=== PATIENT | female | born 1990 | race Caucasian/White ===

== ENCOUNTER 2024-10-03 12:52 | Inpatient (IN) | payer OTHER ==
[2024-10-03] VITALS (10 sets, daily range): BP systolic 94–144; BP diastolic 55–80
[~2024-10-03] VITALS: Ht 177.8 cm; Wt 85.0 kg
[2024-10-03 13:34] LABS: BASOPHILS 0.2 % (0-2); HEMATOCRIT 41.7 % (35.0-50.0); HEMOGLOBIN 14.1 g/dL (12.0-18.0); LYMPHOCYTES 5.6 % (24-44); MCH 25.4 (27-36); MCHC 33.9 g/dl (30-36); MCV 74.8 fl (81-99); MONOCYTES 7.3 % (0-12); NEUTROPHILS 86.9 % (39-80); PLATELET COUNT 213 K/uL (140-440); RBC 5.58 M/ul (4.3-5.7); RDW 15.9 (10.5-15.0)
[2024-10-03] MEDS ORDERED: SODIUM CHLORIDE 0.9% 1,000 ML IV ONE (13:45)
[2024-10-03 13:46] LABS: ALBUMIN 2.6 g/dL (3.4-5.0); ALBUMIN/GLOBULIN RATIO 0.51 (1.1-2.4); ANION GAP 14.3 (7-21); BILIRUBIN, TOTAL 0.8 ng/dL (0.2-1.0); BUN/CREATININE RATIO 13.95 (6.0-28.6); CALCIUM 8.2 mg/dL (8.5-10.1); CREATININE, SERUM 0.86 mg/dL (0.55-1.02); POTASSIUM 3.3 mmol/L (3.5-5.1); PROTEIN, TOTAL 7.7 g/dL (6.4-8.2)
[2024-10-03 13:52] LABS: LACTIC ACID, BLOOD 2.1 mmol/L (0.4-2.0)
[2024-10-03 14:00] LABS: INFLUENZA B NAA NEGATIVE (NEGATIVE); RESPIRATORY SYNCYTIAL VIR NAA NEGATIVE (NEGATIVE)
[2024-10-03] MEDS ORDERED: CEFTRIAXONE/SODIUM CHLORIDE 1 GM/100 ML PIGGYBACK IV ONE (14:15)
[2024-10-03] MEDS ORDERED: AZITHROMYCIN 500 MG in DEXTROSE 5% 250 ML IV ONE (14:15)
[2024-10-03] MEDS ORDERED: OSELTAMIVIR PHOSPHATE 75 MG CAP PO SCH (14:28)
[2024-10-03] MEDS ORDERED: LACTATED RINGER'S 1,000 ML IV SCH (14:30)
[2024-10-03] MEDS ORDERED: POTASSIUM CHLORIDE 10 MEQ TABCR PO ONE (14:30)
[2024-10-03] MEDS ORDERED: ondansetron HCL 4 MG/2 ML VIAL IV PRN (14:30)
[2024-10-03] MEDS ORDERED: ACETAMINOPHEN 325 MG TAB PO PRN (14:30)
[2024-10-03 15:05] LABS: LACTIC ACID, BLOOD 1.7 mmol/L (0.4-2.0)
[2024-10-03] MEDS ORDERED: HYDROmorphone HCL 1 MG/ML SYR ONE (15:43)
--- NOTE | 2024-10-03 15:49 | NUR ---
DILAUDID 1 MG IV GIVEN FOR PAIN. TAKING KCL BY MOUTH. DENIES NAUSEA.
--- NOTE | 2024-10-03 15:59 | NUR ---
33 YEAR OLD FEMALE PATIENT ADMITTED TO CCU ROOM 130 FROM ER VIA STRETCHER UNDER DR. STILL WITH DX OF INFLU A+, MULTI LOBE PNEUMONIA. REPORT RECEIVED FROM [facility]. THIS RN TRANSPORTED PT FROM ER TO CCU. P[place]INT HAS BEEN ILL FOR 2 DAY AT HOME WITH COUGH AND PAIN WITH SHORTNESS OF BREATH. ADMISSION PROCESS STARTED. BOYFRIEND IN ROOM. PATIENT C/O SEVERE MID ABD PAIN, R FLANK PAIN. RR-40 TO 50. PATIENT IS VERY RESTLESS AT TIME. DR. STILL IS IN THE ROOM.
[2024-10-03] MEDS ORDERED: HYDROmorphone HCL 1 MG/ML SYR IV PRN (16:15)
[2024-10-03] MEDS ORDERED: ALBUTEROL/IPRATROPIUM 3 ML NEB INH PRN (16:15)
[2024-10-03] MEDS ORDERED: HYDROCORTISONE SOD SUCCINATE 100 MG/2 ML VIAL IV SCH ×2 (16:29→18:30)
--- NOTE | 2024-10-03 16:29 | NUR ---
MORPHINE 4 MG PO GIVEN FOR PAIN AND RESP COMFORT.
[2024-10-03] MEDS ORDERED: MORPHINE SULFATE 4 MG/ML VIAL IV PRN (16:30)
--- NOTE | 2024-10-03 16:48 | NUR ---
RR-40. O2 VIA OXYMASK AT 15 L, RT HERE NOW TO APPLY CPAP.. PATIENT IS SITTING STRAIGHT UP IN BED.
--- NOTE | 2024-10-03 17:02 | NUR ---
US TECH HERE TO DO ABD US. BIPAP ON AT 21/07 FIO2 85.
--- NOTE | 2024-10-03 17:20 | NUR ---
US COMPLETE. VERY ANXIOUS. INDICATEDS SHE NEEDS TO URINATE. CURTIS CATH PLACED WITH RETURN OF CLEAR TIFFANY URINE.
--- NOTE | 2024-10-03 17:20 | NUR ---
INTUBATED WITH SIZE 7.5 ETT, TAPED 22 AT TEETH. SETTINGS AC-480,FIO2-70,RR-16, PEEP-12. ETCO2-26, PIP-30. PPROPOFOL GTT HUNG SEE FLOW SHEET FOR TITRATION.
[2024-10-03] MEDS ORDERED: propofoL 200 MG/20 ML VIAL ONE (17:41)
[2024-10-03] MEDS ORDERED: propofoL 100 ML IV SCH (18:00)
[2024-10-03] MEDS ORDERED: propofoL 200 MG/20 ML VIAL IV ONE (18:00)
--- NOTE | 2024-10-03 18:00 | NUR ---
Vent settings per RT, current settings as follows: VT 480, RR 16, PEEP 12, 70% FIO2. ETT 7.5, 22 at teeth. Induction with propofol.
[2024-10-03 18:01] LABS: BILIRUBIN, URINE NEGATIVE (negative); BLOOD/HGB, URINE NEGATIVE (Negative); KETONE, URINE SMALL (Negative); LEUK ESTERASE, URINE NEGATIVE (negative); NITRITE, URINE NEGATIVE (negative); PH, URINE 5.5 (5-7)
[2024-10-03 18:07] LABS: EPITHELIAL CELLS, URINE TRANSITIONAL 1+ /lpf (0-1+); RED BLOOD CELLS, URINE 0-1 /hpf (0-5)
[2024-10-03 18:08] LABS: BACTERIA, URINE RARE /hpf (negative); CASTS, URINE NONE SEEN \\lpf; COLLECTION TYPE, URINE CLEAN CATCH; CRYSTALS, URINE NONE SEEN (0-1+); REFLEX CULTURE, URINE No (No)
--- NOTE | 2024-10-03 18:14 | NUR ---
MED REC COMPLETE
[2024-10-03] MEDS ORDERED: SUCCINYLCHOLINE IN 0.9% NACL 200 MG/10 ML SYRINGE IV ONE (18:15)
--- NOTE | 2024-10-03 18:30 | NUR ---
CALM NOW. PROPOFOL GTT INFUSING AT 80 MCG/KG/MIN. CURTIS CATH PATENT WITH CLOUDY URINE NOTED. VENT SETTINGS AC-16, FIO2-70, PEEP-12,TV-480. ETCO2-27. PIP-30. URINE SENT TO LAB FOR DRUG SCREEN.
[2024-10-03 18:35] LABS: BASE EXCESS, BLOOD GAS -3.1 mmol/L (-2-2); HCO3, BLOOD GAS 20.6 mmol/L (22-26); O2 SATURATION, BLOOD GAS 96.3 % (95.0-100.0); PCO2, BLOOD GAS 30.8 mmHg (35-45); PH, BLOOD GAS 7.43 (7.35-7.45); TOTAL CO2, BLOOD GAS 21.6
[2024-10-03 18:52] LABS: AMPHETAMINES, URINE POSITIVE (NEGATIVE); BARBITURATES, URINE NEGATIVE (NEGATIVE); BENZODIAZEPINE, URINE NEGATIVE (NEGATIVE); BUPRENORPHINE, URINE NEGATIVE (NEGATIVE); CANNABINOID, URINE NEGATIVE (NEGATIVE); COCAINE, URINE NEGATIVE (NEGATIVE); ECSTASY, URINE POSITIVE (NEGATIVE); FENTANYL, URINE POSITIVE (NEGATIVE); METHADONE, URINE NEGATIVE (NEGATIVE); OPIATES, URINE POSITIVE (NEGATIVE); OXYCODONE, URINE NEGATIVE (NEGATIVE); PHENCYCLIDINE, URINE NEGATIVE (NEGATIVE)
--- NOTE | 2024-10-03 19:00 | NUR ---
REPORT TO NEXT SHIFT. SAME SETTINGS ON VENT.
[2024-10-03] MEDS ORDERED: FENTANYL CITRATE-0.9 % NACL/PF 100 ML IV SCH (19:30)
[2024-10-03] MEDS ORDERED: LACTATED RINGER'S 1,000 ML IV PRN (20:00)
--- NOTE | 2024-10-03 20:15 | NUR ---
FENTANYL GTT INITIATED AT 12.5 MCG/HR, PROPOFOL AT 80MCG/KG/MIN. ROUNDS WITH MD STILL COMPLETED. SEE NEW ORDERS. JEWELS IS NOTED TO BE GRIMACING WITH A RASS OF -2. PERRL 2+, MOVES WIRST AND FEET PURPOSEFULLY RESP- 7.5 ETT AT 22 TEETH, VC AC 16RR/ 70% FIO2/ RR 16, VC/AC MVe 9.28 VTE 449. ENDOTRACHEAL SUCTION PERFORMED. YELLOW, THIN SECRETIONS NOTED BREATH SOUNDS CLEAR/ DIMINISHED CARDIAC- SR-ST, PALPABLE PULSES, 97.6 AXILLARY GI/- INDWELLING CURTIS CATHETER, TIFFANY/ CLOUDY URINE PRODUCED INT- SEE ASSESSMENT
[2024-10-03] MEDS ORDERED: LORazepam 2 MG/ML VIAL IV PRN (20:30)
[2024-10-03] MEDS ORDERED: MELATONIN 3 MG TAB PO PRN (21:00)
[2024-10-03] MEDS ORDERED: LORazepam 2 MG/ML VIAL ONE (21:13)
--- NOTE | 2024-10-03 21:32 | NUR ---
PATIENT JEWELS WAS TAKEN TO CT ACCOMPANIED BY THIS RN, RT YOU, AND SECURITY GRAHAM FOR LINE MANAGEMENT. JEWELS WAS NOTED TO BECOME ANXIOUS. SIGNS WERE KICKING LEGS, LIFTING HEAD OFF OF BED, AND MOVING ARMS. PROPOFOL INCREASED TO 100MCG/KG/MIN AND FENTANYL TO 50MCG/HR. 2131- BACK IN BED SAFELY, LINES AND TUBES SECURED. PROFOL DECREASED TO 80MCG/KG/MIN. FENTANYL REMAINS AT 50MCG/HR DUE TO GRIMACING NOTED. PARTNER BARBI IS AT BEDSIDE.
--- NOTE | 2024-10-03 21:52 | NUR ---
2043 RICARDO WITH [facility] CONFIRMS RM AVAILABILITY AT [facility] RM 2008 ICU. 2146 CALLED [facility] FOR TRANSPORT, SPOKE WITH ALEXANDRO, [facility] CHECKING WEATHER.
[2024-10-03] MEDS ORDERED: DAPTOmycin 500 MG/10 ML VIAL IV SCH (22:00)
[2024-10-03] MEDS ORDERED: PIPERACILLIN/TAZOBACTAM 3.375 GM VIAL ONE (22:00)
[2024-10-03] MEDS ORDERED: PIPERACILLIN/TAZOBACTAM 3.375 GM in DEXTROSE 5% 100 ML IV SCH (22:00)
--- NOTE | 2024-10-03 23:18 | NUR ---
[facility] TRANSPORT TO [facility]. JEWELS WAS TRANFERRED ON [facility], VENTILATOR WITH CO2, VSS AND WDL PER MONITOR, INDWELLING CURTIS CATHETER PRESENT, PROPOFOL AT 60MCG/KG/MIN, FENTANYL 50MCG/HR, EXTENDED INFUSION OF PIP EVENS, LR AT 125CC/HR INTACT AND PATENT IV X3 PARTNER BARBI ON HIS WAY TO HOSPITAL IN [place]
--- NOTE | 2024-10-03 23:32 | NUR ---
PATIENT REPORT CALLED TO RICARDO KAUFMAN AT [facility]. ALL QUESTIONS WERE ADDRESSED
[2024-10-04] MEDS ORDERED: AZITHROMYCIN 250 MG TAB PO SCH (09:00)
[2024-10-04] MEDS ORDERED: CEFTRIAXONE/SODIUM CHLORIDE 1 GM/100 ML PIGGYBACK IV SCH (09:00)
[2024-10-04] MEDS ORDERED: PHARMACY RENAL DOSE ADJUSTMENT 1 DOSE MISC PO SCH (12:00)
--- NOTE | 2024-10-05 20:30 | EKG ---
[facility] [address] [facility] [place], [place] [address] Signed Sinus tachycardia Low voltage QRS Borderline ECG No previous ECGs available Confirmed by Akil Still DO ([id number]) on 10/05/2024 8:29:58 PM Electronically Signed By: AKIL STILL DO 10/05/24 2030 PATIENT NAME: JEWELS CARLISLE Electrocardiogram DATE OF : 89 PHYSICIAN: AKIL STILL DO REPORT #: [id number] REPORT IS CONFIDENTIAL AND NOT TO BE RELEASED WITHOUT AUTHORIZATION
== END 2024-10-03 22:30 | disposition short-term general hospital (02) | DRG 871 ==
LOC: ED 12:52 → CCU 14:42
PROVIDERS: Emergency Medicine; ADMIT Student in an Organized Health Care Education/Training Program; ATTEND Student in an Organized Health Care Education/Training Program
PROC: 5A1935Z Respiratory Ventilation, Less than 24 Consecutive Hours (ICD-10-PCS; principal; 2024-10-03)
PROC: 0BH17EZ Insertion of Endotracheal Airway into Trachea, Via Natural or Artificial Opening (ICD-10-PCS; 2024-10-03)
PROC: 3E03329 Introduction of Other Anti-infective into Peripheral Vein, Percutaneous Approach (ICD-10-PCS; 2024-10-03)
DX: A41.89 Other specified sepsis (principal); J10.01 Influenza due to other identified influenza virus with the same other identified influenza virus pneumonia; E87.20 Acidosis, unspecified; R06.03 Acute respiratory distress; F19.90 Other psychoactive substance use, unspecified, uncomplicated
CPT/HCPCS: 31500; 36415; 36600; 71045; 71260; 76770; 76801; 80048; 80053; 80307; 81001; 82803; 83605; 83735; 84702; 84703; 85025; 85379; 87502; 93005; 93010; 94002; 94640; 94660; A9270; J0330; J0456; J0696; J0878; J1171; J1720; J2270; J2543; J2704; J3010; J7030; J7060; J7121; U0002